=== PATIENT | male | born 1960 | race Caucasian/White ===

== ENCOUNTER 2017-05-29 14:31 | Emergency (ER) | payer OTHER ==
[~2017-05-29] VITALS: Ht 182.9 cm; Wt 95.2 kg
[~2017-05-29 14:31] MED LIST: Amoxicillin875 MG PO; Ciloxan5 ML LEFTEAR; IBUP800 PO; NEOPOLHCSU LEFTEAR; Norco 5-325 Ta1 EACH PO
[2017-08-24] MEDS ORDERED: PRED5 PO (02:44)
[2017-08-24] MEDS ORDERED: Zofran Odt4 MG PO (03:44)
== END 2017-05-29 15:23 | disposition home or self-care (01) ==
LOC: ER 14:31
DX: J11.1 Influenza due to unidentified influenza virus with other respiratory manifestations (principal); Z79.899 Other long term (current) drug therapy; Z79.2 Long term (current) use of antibiotics; F17.200 Nicotine dependence, unspecified, uncomplicated
CPT/HCPCS: 71046; 99283

== ENCOUNTER 2017-07-01 15:33 | Emergency (ER) | payer OTHER ==
[~2017-07-01] VITALS: Ht 182.9 cm; Wt 95.2 kg
[2017-07-01] MEDS ORDERED: CEPH500 PO (16:35)
[2017-07-01] MEDS ORDERED: HYDHCL25 PO (16:35)
[2017-07-01] MEDS ORDERED: TRIA15CR3 TOP (16:35)
[2017-08-24] MEDS ORDERED: PRED5 PO (02:44)
[2017-08-24] MEDS ORDERED: Zofran Odt4 MG PO (03:44)
== END 2017-07-01 16:45 | disposition home or self-care (01) ==
LOC: ER 15:33
DX: L25.9 Unspecified contact dermatitis, unspecified cause (principal); L03.114 Cellulitis of left upper limb; L03.113 Cellulitis of right upper limb; F17.200 Nicotine dependence, unspecified, uncomplicated; Z79.899 Other long term (current) drug therapy; Z79.891 Long term (current) use of opiate analgesic
CPT/HCPCS: 99283

== ENCOUNTER 2017-08-26 11:54 | Emergency (ER) | payer OTHER ==
[~2017-08-26] VITALS: Ht 182.9 cm; Wt 95.2 kg
[~2017-08-26 11:54] MED LIST changes: +CEPH500 PO; +HYDHCL25 PO; +PRED5 PO; +TRIA15CR3 TOP; +Zofran Odt4 MG PO
[2017-08-26 12:43] LABS: BASOPHILS ABSOLUTE AUTO 0.05 K/mm3 (0.00-0.23); BASOPHILS PERCENT AUTO 1 % (0-2); EOSINOPHILS ABSOLUTE AUTO 0.08 K/mm3 (0.00-0.68); EOSINOPHILS PERCENT AUTO 1 % (0-6); Hematocrit 45.6 % (37.0-53.0); Hemoglobin 15.6 g/dL (13.5-17.5); IMMATURE GRAN ABSOLUTE AUTO 0.02 K/mm3 (0.00-0.10); IMMATURE GRAN PERCENT AUTO 0 % (0-1); LYMPHOCYTES PERCENT AUTO 27 % (21-46); MONOCYTES ABSOLUTE AUTO 0.81 K/mm3 (0.16-1.47); MONOCYTES PERCENT AUTO 9 % (4-13); Mean Corpuscular HGB 30.6 pg (26.0-34.0); Mean Corpuscular HGB Conc 34.2 g/dL (31.5-36.5); Mean Corpuscular Volume 90 fL (80-100); Mean Platelet Volume 9.6 fL (9.1-12.4); NEUTROPHILS ABSOLUTE AUTO 5.64 K/mm3 (1.96-9.15); NEUTROPHILS PERCENT AUTO 63 % (41-73); Platelet Count 308 K/mm3 (150-400); RDW Coefficient Variation 12.6 % (11.7-14.2); RDW Standard Deviation 41.4 fL (35.1-46.3); Red Blood Cell Count 5.09 M/mm3 (4.30-5.90)
[2017-08-26 13:01] LABS: Alanine Aminotransfer (ALT/SGP 20 U/L (12-78); Albumin, Blood 3.9 g/dL (3.4-5.0); Alk Phos 57 U/L (50-136); Anion Gap 6 mmol/L (6-16); Aspartate Aminotrans (AST/SGOT 12 U/L (12-37); Bilirubin, Total 0.5 mg/dL (0.1-1.0); Blood Urea Nitrogen 24 mg/dL (8-24); Bun/Creatinine Ratio 26.3 (12.0-20.0); CO2, Blood 30 mmol/L (21-32); Calcium, Blood 9.3 mg/dL (8.5-10.1); Chloride, Blood 100 mmol/L (98-108); Creatinine, Blood 0.91 mg/dL (0.60-1.20); Globulin, Blood 3.9 g/dL (2.2-4.0); Glomerular Filtration Rate >60 (60-); Glucose, Blood 114 mg/dL (70-99); Potassium, Blood 3.8 mmol/L (3.5-5.5); Sodium, Blood 136 mmol/L (136-145); Total Protein, Blood 7.8 g/dL (6.4-8.2)
== END 2017-08-26 14:05 | disposition left against medical advice (07) ==
LOC: ER 11:54
PROVIDERS: Emergency Medicine
DX: Z53.21 Procedure and treatment not carried out due to patient leaving prior to being seen by health care provider (principal)
CPT/HCPCS: 36415; 80053; 83690; 85025; 99283

== ENCOUNTER 2018-02-05 08:25 | Emergency (ER) | payer OTHER ==
[~2018-02-05] VITALS: Ht 182.9 cm; Wt 90.7 kg
[2018-02-05 09:11] LABS: Source, Urine Voided
[2018-02-05 09:13] LABS: BASOPHILS ABSOLUTE AUTO 0.05 K/mm3 (0.00-0.23); BASOPHILS PERCENT AUTO 0 % (0-2); EOSINOPHILS ABSOLUTE AUTO 0.02 K/mm3 (0.00-0.68); EOSINOPHILS PERCENT AUTO 0 % (0-6); Hematocrit 45.7 % (37.0-53.0); Hemoglobin 15.3 g/dL (13.5-17.5); IMMATURE GRAN ABSOLUTE AUTO 0.06 K/mm3 (0.00-0.10); IMMATURE GRAN PERCENT AUTO 0 % (0-1); LYMPHOCYTES ABSOLUTE AUTO 1.26 K/mm3 (0.84-5.20); LYMPHOCYTES PERCENT AUTO 8 % (21-46); MONOCYTES ABSOLUTE AUTO 1.17 K/mm3 (0.16-1.47); MONOCYTES PERCENT AUTO 8 % (4-13); Mean Corpuscular HGB 30.3 pg (26.0-34.0); Mean Corpuscular HGB Conc 33.5 g/dL (31.5-36.5); Mean Corpuscular Volume 91 fL (80-100); Mean Platelet Volume 10.1 fL (9.1-12.4); NEUTROPHILS PERCENT AUTO 83 % (41-73); Platelet Count 206 K/mm3 (150-400); RDW Coefficient Variation 12.8 % (11.7-14.2); RDW Standard Deviation 42.5 fL (35.1-46.3); Red Blood Cell Count 5.05 M/mm3 (4.30-5.90); White Blood Cell Count 15.06 K/mm3 (4.00-11.30)
[2018-02-05 09:20] LABS: Blood, Urine 3+ (Neg); Glucose Qualitative, Urine Neg (Neg); Ketones, Urine 2+ (Neg); Leukocyte Esterase, Urine 2+ (Neg); Nitrite, Urine Pos (Neg); Protein, Urine 2+ (Neg); Urobilinogen, Urine 1+ (Normal)
[2018-02-05 09:27] LABS: Bilirubin, Urine 1+ (Neg)
[2018-02-05 09:28] LABS: Appearance, Urine Hazy (Clear); Color, Urine Orange (P-Yellow)
[2018-02-05 09:36] LABS: Alanine Aminotransfer (ALT/SGP 15 U/L (12-78); Albumin, Blood 3.8 g/dL (3.4-5.0); Alk Phos 85 U/L (50-136); Anion Gap 10 mmol/L (6-16); Aspartate Aminotrans (AST/SGOT 10 U/L (12-37); Bilirubin, Total 0.8 mg/dL (0.1-1.0); Blood Urea Nitrogen 17 mg/dL (8-24); Bun/Creatinine Ratio 18.4 (12.0-20.0); CO2, Blood 22 mmol/L (21-32); Calcium, Blood 8.9 mg/dL (8.5-10.1); Chloride, Blood 105 mmol/L (98-108); Creatinine, Blood 0.93 mg/dL (0.60-1.20); Globulin, Blood 3.7 g/dL (2.2-4.0); Glomerular Filtration Rate >60 (60-); Glucose, Blood 108 mg/dL (70-99); Potassium, Blood 3.6 mmol/L (3.5-5.5); Sodium, Blood 137 mmol/L (136-145); Total Protein, Blood 7.5 g/dL (6.4-8.2)
[2018-02-05 09:38] LABS: Bacteria Many /hpf; Red Blood Cells, Urine 0-2 /hpf (0-2); Squamous Epithelial Cells Few /hpf (Few)
[2018-02-05 09:43] LABS: Amorphous Light (0-Heavy)
[2018-02-05 09:44] LABS: Mucus Light (0-Heavy)
[2018-02-05] MEDS ORDERED: Ultram50 MG PO (10:47)
[2018-02-05] MEDS ORDERED: Bactrim Ds Tab1 EACH PO (10:47)
[2018-02-05] MEDS ORDERED: Zofran Odt4 MG SL (10:47)
== END 2018-02-05 11:04 | disposition home or self-care (01) ==
LOC: ER 08:25
PROVIDERS: Nurse Practitioner Family
DX: N12 Tubulo-interstitial nephritis, not specified as acute or chronic (principal); F17.200 Nicotine dependence, unspecified, uncomplicated
CPT/HCPCS: 36415; 74176; 80053; 81001; 83690; 85025; 87086; 96365; 96375; 99285-25; J0696; J1885; J2405; J3010; J7030

== ENCOUNTER 2018-12-18 11:49 | Emergency (ER) | payer OTHER ==
[~2018-12-18] VITALS: Ht 182.9 cm; Wt 90.7 kg
[~2018-12-18 11:49] MED LIST changes: +Bactrim Ds Tab1 EACH PO; +Ultram50 MG PO; +Zofran Odt4 MG SL
[2018-12-18] MEDS ORDERED: Lopressor 25 mg25 MG PO (12:32)
[2018-12-18] MEDS ORDERED: Flonase 0.05% N16 GM (12:32)
[2018-12-18 12:34] LABS: BASOPHILS ABSOLUTE AUTO 0.04 K/mm3 (0.00-0.23); BASOPHILS PERCENT AUTO 1 % (0-2); EOSINOPHILS ABSOLUTE AUTO 0.18 K/mm3 (0.00-0.68); EOSINOPHILS PERCENT AUTO 2 % (0-6); Hematocrit 50.2 % (37.0-53.0); Hemoglobin 16.7 g/dL (13.5-17.5); IMMATURE GRAN ABSOLUTE AUTO 0.04 K/mm3 (0.00-0.10); IMMATURE GRAN PERCENT AUTO 1 % (0-1); LYMPHOCYTES ABSOLUTE AUTO 2.73 K/mm3 (0.84-5.20); LYMPHOCYTES PERCENT AUTO 31 % (21-46); MONOCYTES ABSOLUTE AUTO 0.68 K/mm3 (0.16-1.47); MONOCYTES PERCENT AUTO 8 % (4-13); Mean Corpuscular HGB 31.2 pg (26.0-34.0); Mean Corpuscular HGB Conc 33.3 g/dL (31.5-36.5); Mean Corpuscular Volume 94 fL (80-100); Mean Platelet Volume 9.5 fL (9.1-12.4); NEUTROPHILS ABSOLUTE AUTO 5.15 K/mm3 (1.96-9.15); NEUTROPHILS PERCENT AUTO 58 % (41-73); Platelet Count 343 K/mm3 (150-400); RDW Coefficient Variation 13.2 % (11.7-14.2); RDW Standard Deviation 45.3 fL (35.1-46.3); Red Blood Cell Count 5.36 M/mm3 (4.30-5.90); White Blood Cell Count 8.82 K/mm3 (4.00-11.30)
[2018-12-18 12:52] LABS: Alanine Aminotransfer (ALT/SGP 17 U/L (12-78); Albumin, Blood 4.1 g/dL (3.4-5.0); Alk Phos 93 U/L (50-136); Anion Gap 8 mmol/L (6-16); Aspartate Aminotrans (AST/SGOT 16 U/L (12-37); Bilirubin, Total 0.4 mg/dL (0.1-1.0); Blood Urea Nitrogen 15 mg/dL (8-24); Bun/Creatinine Ratio 13.9 (12.0-20.0); CO2, Blood 29 mmol/L (21-32); Calcium, Blood 9.5 mg/dL (8.5-10.1); Chloride, Blood 103 mmol/L (98-108); Creatinine, Blood 1.08 mg/dL (0.60-1.20); Glomerular Filtration Rate >60 (60-); Glucose, Blood 106 mg/dL (70-99); Potassium, Blood 3.8 mmol/L (3.5-5.5); Sodium, Blood 140 mmol/L (136-145); Total Protein, Blood 8.1 g/dL (6.4-8.2)
[2018-12-18] MEDS ORDERED: Pepcid20 MG PO (13:39)
== END 2018-12-18 14:00 | disposition home or self-care (01) ==
LOC: ER 11:49
PROVIDERS: Emergency Medicine
DX: R10.13 Epigastric pain (principal); R07.2 Precordial pain; I10 Essential (primary) hypertension; F17.210 Nicotine dependence, cigarettes, uncomplicated; Z79.899 Other long term (current) drug therapy
CPT/HCPCS: 36415; 76705; 80053; 83690; 84484; 85025; 93005; 93010; 96374; 96375; 99284-25; J1100; J1200; J2405

== ENCOUNTER 2019-01-24 13:54 | Emergency (ER) | payer OTHER ==
[~2019-01-24] VITALS: Ht 182.9 cm; Wt 93.0 kg
[~2019-01-24 13:54] MED LIST changes: +Flonase 0.05% N16 GM; +Lopressor 25 mg25 MG PO; +Pepcid20 MG PO
[2019-01-24 14:19] LABS: BASOPHILS ABSOLUTE AUTO 0.07 K/mm3 (0.00-0.23); BASOPHILS PERCENT AUTO 1 % (0-2); EOSINOPHILS ABSOLUTE AUTO 0.12 K/mm3 (0.00-0.68); EOSINOPHILS PERCENT AUTO 2 % (0-6); Hematocrit 42.7 % (37.0-53.0); Hemoglobin 13.8 g/dL (13.5-17.5); IMMATURE GRAN ABSOLUTE AUTO 0.01 K/mm3 (0.00-0.10); IMMATURE GRAN PERCENT AUTO 0 % (0-1); LYMPHOCYTES ABSOLUTE AUTO 2.55 K/mm3 (0.84-5.20); LYMPHOCYTES PERCENT AUTO 35 % (21-46); MONOCYTES ABSOLUTE AUTO 0.62 K/mm3 (0.16-1.47); MONOCYTES PERCENT AUTO 8 % (4-13); Mean Corpuscular HGB 30.8 pg (26.0-34.0); Mean Corpuscular HGB Conc 32.3 g/dL (31.5-36.5); Mean Corpuscular Volume 95 fL (80-100); Mean Platelet Volume 9.5 fL (9.1-12.4); NEUTROPHILS ABSOLUTE AUTO 3.97 K/mm3 (1.96-9.15); NEUTROPHILS PERCENT AUTO 54 % (41-73); Platelet Count 297 K/mm3 (150-400); RDW Coefficient Variation 13.2 % (11.7-14.2); RDW Standard Deviation 46.4 fL (35.1-46.3); Red Blood Cell Count 4.48 M/mm3 (4.30-5.90); White Blood Cell Count 7.34 K/mm3 (4.00-11.30)
[2019-01-24 14:37] LABS: Alanine Aminotransfer (ALT/SGP 16 U/L (12-78); Albumin, Blood 3.5 g/dL (3.4-5.0); Alk Phos 82 U/L (50-136); Anion Gap 7 mmol/L (6-16); Aspartate Aminotrans (AST/SGOT 12 U/L (12-37); Bilirubin, Total 0.3 mg/dL (0.1-1.0); Blood Urea Nitrogen 16 mg/dL (8-24); Bun/Creatinine Ratio 14.4 (12.0-20.0); CO2, Blood 24 mmol/L (21-32); Calcium, Blood 8.5 mg/dL (8.5-10.1); Chloride, Blood 108 mmol/L (98-108); Creatinine, Blood 1.11 mg/dL (0.60-1.20); Globulin, Blood 3.4 g/dL (2.2-4.0); Glomerular Filtration Rate >60 (60-); Glucose, Blood 89 mg/dL (70-99); Potassium, Blood 4.3 mmol/L (3.5-5.5); Sodium, Blood 139 mmol/L (136-145); Total Protein, Blood 6.9 g/dL (6.4-8.2)
[2019-01-24 16:53] LABS: Source, Urine Clean Catch
[2019-01-24 16:59] LABS: Blood, Urine Neg (Neg); Glucose Qualitative, Urine Neg (Neg); Ketones, Urine 2+ (Neg); Leukocyte Esterase, Urine 1+ (Neg); Nitrite, Urine Neg (Neg); Protein, Urine 2+ (Neg); Specific Gravity, Urine 1.025 (1.003-1.022); Urobilinogen, Urine 2+ (Normal)
[2019-01-24 17:00] LABS: Bilirubin, Urine 1+ (Neg)
[2019-01-24 17:06] LABS: Appearance, Urine Hazy (Clear); Color, Urine Yellow (P-Yellow)
[2019-01-24 17:09] LABS: Red Blood Cells, Urine Not Seen /hpf (0-2); White Blood Cells, Urine 0-2 /hpf (0-5)
[2019-01-24 17:10] LABS: Bacteria Mod /hpf; Mucus Mod (0-Heavy); Squamous Epithelial Cells Few /hpf (Few)
[2019-01-24] MEDS ORDERED: CEPH500 PO (18:00)
[2019-01-24] MEDS ORDERED: Tylenol325 MG PO (18:17)
== END 2019-01-24 18:25 | disposition home or self-care (01) ==
LOC: ER 13:54
PROVIDERS: Emergency Medicine; Physician Assistant
DX: N39.0 Urinary tract infection, site not specified (principal); I10 Essential (primary) hypertension; F17.210 Nicotine dependence, cigarettes, uncomplicated
CPT/HCPCS: 36415; 74176; 80053; 81001; 83690; 85025; 99284-25